=== PATIENT | male | born 1940 | race Caucasian/White ===

== ENCOUNTER 2022-01-23 19:23 | Emergency (ER) | payer MEDICARE, OTHER ==
[~2022-01-23] VITALS: Ht 182.9 cm; Wt 100.0 kg
[2022-01-23] MEDS ORDERED: 0.9% SODIUM CHLORIDE 10 ML SYRINGE IVP PRN (19:30)
[2022-01-23 20:11] LABS: BASOPHILS % (AUTO) 0.5 % (0.0-2.0); HEMATOCRIT 40.8 % (41-53); HEMOGLOBIN 13.6 g/dL (13.5-17.5); LYMPHOCYTES # (AUTO) 1.3 K/uL (1.0-4.8); LYMPHOCYTES % (AUTO) 21.8 % (22.0-44.0); MEAN CORPUSCULAR HEMOGLOBIN 31.7 pg (26.0-34.0); MEAN CORPUSCULAR HGB CONC 33.3 G/dL (31.0-37.0); MEAN CORPUSCULAR VOLUME 95 fL (80-100); MONOCYTES # (AUTO) 0.4 K/uL (0.1-1.0); MONOCYTES % (AUTO) 5.9 % (2.0-9.0); NEUTROPHILS # (AUTO) 4.2 K/uL (1.8-7.7); NEUTROPHILS % (AUTO) 68.8 % (40.0-70.0); PLATELET COUNT (AUTO) 152 K/uL (150-450); RED BLOOD CELL COUNT(AUTO) 4.29 MIL/uL (4.50-5.90); RED CELL DISTRIBUTION WIDTH 14.5 % (11.5-14.5)
[2022-01-23] MEDS ORDERED: BISA-151 PO (20:11)
[2022-01-23] MEDS ORDERED: PRAM0.258 PO (20:11)
[2022-01-23] MEDS ORDERED: TOBR5DRO44 OU (20:11)
[2022-01-23] MEDS ORDERED: MULT-1203 PO (20:11)
[2022-01-23] MEDS ORDERED: DOCU-385 PO (20:11)
[2022-01-23] MEDS ORDERED: TAMS-13 PO (20:11)
[2022-01-23] MEDS ORDERED: SENN-308 PO (20:11)
[2022-01-23] MEDS ORDERED: CARB-98 PO (20:11)
[2022-01-23] MEDS ORDERED: MELA5TAB40 PO (20:11)
[2022-01-23] MEDS ORDERED: QUET25TA PO (20:11)
[2022-01-23] MEDS ORDERED: GABA-1216 PO (20:11)
[2022-01-23] MEDS ORDERED: ACET-2247 PO (20:11)
[2022-01-23] MEDS ORDERED: DOCU-350 PO (20:11)
[2022-01-23] MEDS ORDERED: FINA-27 PO (20:11)
[2022-01-23 20:18] LABS: COVID AG,FIA SOURCE NASAL SWAB
[2022-01-23 20:20] LABS: ANION GAP 8 mmol/L (8-16); CALCIUM, TOTAL 9.8 mg/dL (8.8-10.5); CARBON DIOXIDE 28 mmol/L (22-29); CHLORIDE 106 mmol/L (98-107); GLUCOSE,RANDOM 118 mg/dL (70-110); SODIUM SERUM 142 mmol/L (136-145); UREA NITROGEN, BLOOD 22 mg/dL (7-18)
[2022-01-23 20:21] LABS: GLOMERULAR FILTR. RATE CALC > 60 mL/min (>60)
[2022-01-23 20:24] LABS: INR 1.1 (0.9-1.1); PROTHROMBIN TIME 11.3 SEC (9.4-11.6)
[2022-01-23 20:26] LABS: ALANINE AMINOTRANSFERASE 11 U/L (12-78); ALKALINE PHOSPHATASE 233 U/L (46-116); ASPARTATE AMINOTRANSFERASE 26 U/L (15-37); BILIRUBIN,TOTAL 0.4 mg/dL (0.1-1.0); CREATINE KINASE, TOTAL ONLY 24 U/L (39-308); TOTAL PROTEIN, SERUM 6.7 g/dL (6.4-8.2)
[2022-01-23 20:28] LABS: LACTIC ACID 1.7 mmol/L (0.4-2.0)
[2022-01-23 20:30] LABS: B-TYPE NATRIURETIC PEPTIDE 18 pg/mL (0-100)
[2022-01-23 20:38] LABS: INFLUENZA TYPE A NEGATIVE FOR TYPE A (NEGATIVE); INFLUENZA TYPE B NEGATIVE FOR TYPE B (NEGATIVE)
[2022-01-23 21:19] LABS: APPEARANCE,URINE CLEAR (CLEAR); BILIRUBIN,URINE NEGATIVE (NEGATIVE); GLUCOSE, URINE (UA) NEGATIVE (NEGATIVE); KETONES,URINE TRACE mg/dL (NEGATIVE); LEUKOCYTE ESTERASE ,URINE TRACE (NEGATIVE); NITRATE,URINE NEGATIVE (NEGATIVE); OCCULT BLOOD,URINE TRACE (NEGATIVE); PH,URINE 5.5 (5.0-8.0); PROTEIN,URINE 30-70 mg/dL (NEGATIVE); SPECIFIC GRAVITIY, URINE 1.027 (1.003-1.030)
[2022-01-23 21:24] LABS: BACTERIA,URINE Rare /HPF (None Seen); SQUAMOUS EPITHELIAL CELL,UR Rare /LPF (None Seen)
[2022-01-23] MEDS: SODIUM CHLORIDE 0.9% 1,000 ML IV ONE (21:56)
[2022-01-24 00:13] VITALS: BP 144/76
== END 2022-01-24 00:19 | disposition home or self-care (01) ==
LOC: EMS 19:23
DX: R41.82 Altered mental status, unspecified (principal); F03.90 Unspecified dementia, unspecified severity, without behavioral disturbance, psychotic disturbance, mood disturbance, and anxiety; Z20.822 Contact with and (suspected) exposure to COVID-19; Z79.899 Other long term (current) drug therapy
CPT/HCPCS: 70450; 71045; 80053; 81001; 82550; 83605; 83880; 84145; 84484; 85025; 85610; 85730; 87040; 87804; 93005; 96360; 96361; 99285; 36415-L1; 36415-TC